=== PATIENT | male | born 1975 | race Caucasian/White ===

== ENCOUNTER → 2017-03-06 | Outpatient (CLI) | payer MEDICARE, MEDICAID ==
[~2017-03-06] MED LIST: ANAPROX DS550 MG PO; BACTRIM DS 8001 TAB PO; KEFLEX500 MG PO; PYRIDIUM200 MG PO
[2017-03-06 14:30] LABS: HEMATOCRIT 40.9 % (42.0-52.0); MEAN CELL VOLUME 90.3 fl (80.0-94.0); MEAN CORPUSCULAR HGB 30.9 pg (27.0-31.0); MEAN CORPUSCULAR HGB CONC 34.2 g/dl (33.0-37.0); MEAN PLATELET VOLUME 10.4 fl (9.6-12.3); RED BLOOD COUNT 4.53 10*6/uL (4.50-5.90); RED CELL DISTRI WIDTH 13.3 % (0-14.5); WHITE BLOOD COUNT 7.3 10*3/uL (4.8-10.8)
[2017-03-06 15:03] LABS: ALKALINE PHOSPHATASE 51 U/L (45-117); BUN 11 mg/dl (7-24); CHLORIDE 106 mmol/L (98-107); CHOLESTEROL 153 mg/dL (<200); CPK 133 U/L (39-308); CREATININE 0.87 mg/dL (0.70-1.30); HDL CHOLESTEROL 59 mg/dl (40-60); LDL CHOLESTEROL 71 mg/dL (9-159); POTASSIUM 4.1 mmol/L (3.5-5.1); SGOT/AST 17 IU/L (3-35); SGPT/ALT 23 U/L (12-78); SODIUM 140 mmol/L (136-145); TOTAL PROTEIN 7.5 gm/dL (6.4-8.2); TRIGLYCERIDES 114 mg/dl (<150); VLDL CHOLESTEROL 23 mg/dL (6-40)
== END | disposition home or self-care (01) ==
LOC: LAB 12:58
PROVIDERS: Family Medicine
DX: E78.00 Pure hypercholesterolemia, unspecified (principal); E55.9 Vitamin D deficiency, unspecified; M62.81 Muscle weakness (generalized); F41.1 Generalized anxiety disorder; R53.83 Other fatigue; E74.00 Glycogen storage disease, unspecified

== ENCOUNTER 2017-11-27 14:14 | Emergency (ER) | payer OTHER, MEDICARE, MEDICAID ==
[~2017-11-27] VITALS: Ht 177.8 cm; Wt 90.7 kg
[2017-11-27] MEDS ORDERED: Motrin,Rufen800 MG PO (17:33)
== END 2017-11-27 19:38 | disposition home or self-care (01) ==
LOC: ED 14:14
DX: S16.1XXA Strain of muscle, fascia and tendon at neck level, initial encounter (principal); R51 Headache; M62.89 Other specified disorders of muscle; V49.88XA Car occupant (driver) (passenger) injured in other specified transport accidents, initial encounter; Y93.89 Activity, other specified; Y92.413 State road as the place of occurrence of the external cause; Y99.9 Unspecified external cause status

== ENCOUNTER → 2018-02-11 | Outpatient (CLI) | payer MEDICARE, MEDICAID ==
[~2018-02-11] MED LIST changes: +Motrin,Rufen800 MG PO
== END | disposition home or self-care (01) ==
LOC: MRI 09:52
DX: R51 Headache (principal)

== ENCOUNTER → 2018-04-03 | Outpatient (CLI) | payer MEDICARE, MEDICAID ==
[2018-04-03 12:10] LABS: HEMATOCRIT 41.9 % (42.0-52.0); MEAN CELL VOLUME 90.7 fl (80.0-94.0); MEAN CORPUSCULAR HGB 30.3 pg (27.0-31.0); MEAN CORPUSCULAR HGB CONC 33.4 g/dl (33.0-37.0); MEAN PLATELET VOLUME 9.5 fl (9.6-12.3); RED BLOOD COUNT 4.62 10*6/uL (4.50-5.90); RED CELL DISTRI WIDTH 13.2 % (0-14.5); WHITE BLOOD COUNT 10.7 10*3/uL (4.8-10.8)
[2018-04-03 12:33] LABS: ALBUMIN 4.1 gm/dl (3.1-4.5); BUN 9 mg/dl (7-24); CHLORIDE 106 mmol/L (98-107); CREATININE 0.91 mg/dL (0.70-1.30); POTASSIUM 4.5 mmol/L (3.5-5.1); SGOT/AST 20 IU/L (3-35); SGPT/ALT 23 U/L (12-78); SODIUM 141 mmol/L (136-145)
[2018-04-03 12:35] LABS: ALKALINE PHOSPHATASE 56 U/L (45-117); TOTAL PROTEIN 7.9 gm/dL (6.4-8.2)
== END | disposition home or self-care (01) ==
LOC: LAB 11:37
PROVIDERS: Family Medicine
DX: S80.862A Insect bite (nonvenomous), left lower leg, initial encounter (principal); X58.XXXA Exposure to other specified factors, initial encounter; Y93.89 Activity, other specified; Y92.89 Other specified places as the place of occurrence of the external cause; Y99.8 Other external cause status; M79.605 Pain in left leg

== ENCOUNTER → 2019-02-12 | Outpatient (CLI) | payer OTHER ==
[2019-02-12 11:56] LABS: HEMATOCRIT 42.4 % (42.0-52.0); HEMOGLOBIN 14.2 g/dl (14.0-18.0); MEAN CELL VOLUME 90.8 fl (80.0-94.0); MEAN CORPUSCULAR HGB 30.4 pg (27.0-31.0); MEAN CORPUSCULAR HGB CONC 33.5 g/dl (33.0-37.0); RED BLOOD COUNT 4.67 10*6/uL (4.50-5.90); RED CELL DISTRI WIDTH 13.3 % (0-14.5); WHITE BLOOD COUNT 9.2 10*3/uL (4.8-10.8)
[2019-02-12 12:17] LABS: BUN 10 mg/dl (7-24); CHLORIDE 106 mmol/L (98-107); POTASSIUM 4.4 mmol/L (3.5-5.1); SODIUM 139 mmol/L (136-145)
[2019-02-12 12:21] LABS: ALKALINE PHOSPHATASE 68 U/L (45-117); CHOLESTEROL 149 mg/dL (<200); CPK 167 U/L (39-308); CREATININE 0.97 mg/dL (0.70-1.30); HDL CHOLESTEROL 41 mg/dl (40-60); LDL CHOLESTEROL 64 mg/dL (9-159); SGOT/AST 20 IU/L (3-35); SGPT/ALT 45 U/L (12-78); TOTAL PROTEIN 7.7 gm/dL (6.4-8.2); TRIGLYCERIDES 222 mg/dl (<150); VLDL CHOLESTEROL 44 mg/dL (6-40)
== END | disposition home or self-care (01) ==
LOC: LAB 11:22
PROVIDERS: Family Medicine
DX: E78.00 Pure hypercholesterolemia, unspecified (principal); E55.9 Vitamin D deficiency, unspecified; M25.50 Pain in unspecified joint; G72.9 Myopathy, unspecified

== ENCOUNTER → 2019-07-28 | Outpatient (CLI) | payer OTHER ==
[2019-07-31 17:03] LABS: ALTERNARIA ALTERNATA, IGE <0.10 kU/L (Class 0); AMERICAN ELM, IGE <0.10 kU/L (Class 0); ASPERGILLUS FUMIGATU, IGE <0.10 kU/L (Class 0); BERMUDA GRASS, IGE <0.10 kU/L (Class 0); BIRCH, COMMON SILVER IGE <0.10 kU/L (Class 0); CLADOSPORIUM HERBARU, IGE <0.10 kU/L (Class 0); CORN, IGE <0.10 kU/L (Class 0); D FARINAE MITE <0.10 kU/L (Class 0); D PTERONYSSINUS <0.10 kU/L (Class 0); DOG DANDER, IGE <0.10 kU/L (Class 0); IMMUNOGLOBULIN IgE 71 IU/mL (6-495); MAPLE LEAF SYCAMORE, IGE <0.10 kU/L (Class 0); MAPLE/BOX ELDER, IGE <0.10 kU/L (Class 0); MILK (COW), IGE <0.10 kU/L (Class 0); MOUSE URINE IGE <0.10 kU/L (Class 0); PEANUT, IGE <0.10 kU/L (Class 0); PENICILLIUM CHRYSOGENUM, IGE <0.10 kU/L (Class 0); ROUGH PIGWEED, IGE <0.10 kU/L (Class 0); SHEEP SORREL (DOCK), IGE <0.10 kU/L (Class 0); SHORT RAGWEED, IGE <0.10 kU/L (Class 0); SOYBEAN, IGE <0.10 kU/L (Class 0); TIMOTHY, IGE <0.10 kU/L (Class 0); WALNUT TREE, IGE <0.10 kU/L (Class 0); WHEAT, IGE <0.10 kU/L (Class 0); WHITE ASH, IGE <0.10 kU/L (Class 0); WHITE MULBERRY, IGE <0.10 kU/L (Class 0); WHITE OAK, IGE <0.10 kU/L (Class 0)
== END | disposition home or self-care (01) ==
LOC: LAB 12:38
PROVIDERS: Nurse Practitioner Family
DX: T78.40XA Allergy, unspecified, initial encounter (principal); R09.81 Nasal congestion; L29.9 Pruritus, unspecified; R60.9 Edema, unspecified; X58.XXXA Exposure to other specified factors, initial encounter

== ENCOUNTER → 2021-10-29 | Outpatient (CLI) | payer OTHER | END | disposition home or self-care (01) | LOC: RAD 08:00 | PROVIDERS: ATTEND Family Medicine | DX: K21.9 Gastro-esophageal reflux disease without esophagitis (principal) ==

== ENCOUNTER → 2021-11-22 | Outpatient (CLI) | payer OTHER | END | disposition home or self-care (01) | LOC: RAD/SH 11-20 08:00 | PROVIDERS: ATTEND Family Medicine | DX: R13.10 Dysphagia, unspecified (principal); R49.0 Dysphonia ==

== ENCOUNTER → 2022-08-12 | Outpatient (CLI) | payer OTHER | END | disposition home or self-care (01) | LOC: RAD 13:06 | PROVIDERS: ATTEND Family Medicine | DX: R05.9 Cough, unspecified (principal); R07.9 Chest pain, unspecified ==

== ENCOUNTER → 2022-10-28 | Outpatient (CLI) | payer OTHER | END | disposition home or self-care (01) | LOC: CT 10:48 | PROVIDERS: ATTEND Specialist | DX: G72.89 Other specified myopathies (principal) ==

== ENCOUNTER 2023-06-06 16:01 | Emergency (ER) | payer OTHER ==
[~2023-06-06] VITALS: Ht 175.2 cm; Wt 99.8 kg
[2023-06-06 17:13] LABS: BASO % 0.2 % (0.0-1.0); EOS % 0.1 % (1.0-4.0); HEMATOCRIT 45.9 % (42.0-52.0); LYMPH % 8.2 % (27.0-41.0); MEAN CELL VOLUME 91.8 fl (80.0-94.0); MEAN CORPUSCULAR HGB 30.2 pg (27.0-31.0); MEAN CORPUSCULAR HGB CONC 32.9 g/dl (33.0-37.0); MEAN PLATELET VOLUME 9.2 fl (9.6-12.3); MONO % 8.2 % (3.0-9.0); NEUT # 10.3 10*3/uL (2.3-7.9); NEUT % 82.2 % (47.0-73.0); PLATELET COUNT AUTOMATED 233 10*3/uL (130-400); RED CELL DISTRI WIDTH 13.2 % (0-14.5); WHITE BLOOD COUNT 12.5 10*3/uL (4.8-10.8)
[2023-06-06 17:26] LABS: ACT PARTIAL THROMBO TIME 25.2 SECONDS (20.0-32.1)
[2023-06-06 17:35] LABS: ALKALINE PHOSPHATASE 58 U/L (46-116); BUN 8 mg/dl (9-23); CHLORIDE 105 mmol/L (98-107); LIPASE 36 U/L (12-53); POTASSIUM 3.7 mmol/L (3.4-5.1); SGPT/ALT 19 U/L (5-49); TOTAL PROTEIN 7.5 gm/dL (6.0-8.0)
== END 2023-06-06 21:31 | disposition short-term general hospital (02) ==
LOC: ED 16:01
PROVIDERS: Physician Assistant Medical
DX: S06.359A Traumatic hemorrhage of left cerebrum with loss of consciousness of unspecified duration, initial encounter (principal); W01.10XA Fall on same level from slipping, tripping and stumbling with subsequent striking against unspecified object, initial encounter; Y93.89 Activity, other specified; Y92.009 Unspecified place in unspecified non-institutional (private) residence as the place of occurrence of the external cause; Y99.8 Other external cause status

== ENCOUNTER 2023-09-14 18:14 | Emergency (ER) | payer OTHER ==
[~2023-09-14] VITALS: Ht 177.8 cm; Wt 99.8 kg
[2023-09-14] MEDS ORDERED: KEPPRA750 MG PO (18:28)
[2023-09-14] MEDS ORDERED: HYDROCHLOROTHIA25 M1 PO (18:29)
[2023-09-14] MEDS ORDERED: AMLODIPINE BESY10 MG PO (18:29)
[2023-09-14] MEDS ORDERED: LISINOPRIL10 M1 PO (18:30)
[2023-09-14] MEDS ORDERED: SODIUM CHLORIDE 0.9% 1,000 ML IV ONE (18:45)
[2023-09-14 19:10] LABS: BASO # 0.1 10*3/uL (0.0-0.1); BASO % 0.6 % (0.0-1.0); EOS # 0.2 10*3/uL (0.0-0.4); EOS % 2.5 % (1.0-4.0); HEMATOCRIT 41.7 % (42.0-52.0); LYMPH # 2.2 10*3/uL (1.3-4.4); LYMPH % 22.5 % (27.0-41.0); MEAN CELL VOLUME 91.9 fl (80.0-94.0); MEAN CORPUSCULAR HGB 30.4 pg (27.0-31.0); MEAN CORPUSCULAR HGB CONC 33.1 g/dl (33.0-37.0); MEAN PLATELET VOLUME 9.7 fl (9.6-12.3); MONO # 0.8 10*3/uL (0.1-1.0); MONO % 8.5 % (3.0-9.0); NEUT # 6.2 10*3/uL (2.3-7.9); NEUT % 64.6 % (47.0-73.0); PLATELET COUNT AUTOMATED 222 10*3/uL (130-400); RED BLOOD COUNT 4.54 10*6/uL (4.50-5.90); WHITE BLOOD COUNT 9.6 10*3/uL (4.8-10.8)
[2023-09-14 19:32] LABS: BUN 10 mg/dl (9-23); CHLORIDE 104 mmol/L (98-107); POTASSIUM 3.7 mmol/L (3.4-5.1)
== END 2023-09-14 20:36 | disposition home or self-care (01) ==
LOC: ED 18:14
PROVIDERS: Nurse Practitioner Family
DX: R55 Syncope and collapse (principal); H53.8 Other visual disturbances

== ENCOUNTER → 2024-03-12 | Outpatient (CLI) | payer OTHER ==
[~2024-03-12] MED LIST changes: +AMLODIPINE BESY10 MG PO; +HYDROCHLOROTHIA25 M1 PO; +KEPPRA750 MG PO; +LISINOPRIL10 M1 PO
[2024-03-12 10:40] LABS: BUN 12 mg/dl (9-23); CHLORIDE 104 mmol/L (98-107)
== END | disposition home or self-care (01) ==
LOC: LAB 10:04
PROVIDERS: ATTEND Nurse Practitioner Family
DX: Q27.30 Arteriovenous malformation, site unspecified (principal)

== ENCOUNTER → 2024-03-26 | Outpatient (CLI) | payer OTHER ==
[2024-03-26 17:40] LABS: BASO # 0.1 10*3/uL (0.0-0.1); BASO % 0.5 % (0.0-1.0); EOS # 0.4 10*3/uL (0.0-0.4); EOS % 4.3 % (1.0-4.0); HEMATOCRIT 43.2 % (42.0-52.0); LYMPH # 2.6 10*3/uL (1.3-4.4); MEAN CELL VOLUME 90.2 fl (80.0-94.0); MEAN CORPUSCULAR HGB 30.1 pg (27.0-31.0); MEAN CORPUSCULAR HGB CONC 33.3 g/dl (33.0-37.0); MEAN PLATELET VOLUME 9.1 fl (9.6-12.3); MONO % 11.1 % (3.0-9.0); NEUT % 54.6 % (47.0-73.0); PLATELET COUNT AUTOMATED 224 10*3/uL (130-400); RED BLOOD COUNT 4.79 10*6/uL (4.50-5.90); RED CELL DISTRI WIDTH 12.8 % (0-14.5); WHITE BLOOD COUNT 9.1 10*3/uL (4.8-10.8)
== END | disposition home or self-care (01) ==
LOC: LAB 17:22
PROVIDERS: ATTEND Family Medicine
DX: Q27.30 Arteriovenous malformation, site unspecified (principal)

== ENCOUNTER → 2024-04-09 | Outpatient (CLI) | payer OTHER | END | disposition home or self-care (01) | LOC: RAD 13:01 | PROVIDERS: ATTEND Family Medicine | DX: M77.32 Calcaneal spur, left foot (principal); M77.31 Calcaneal spur, right foot; M43.8X6 Other specified deforming dorsopathies, lumbar region; M51.369 Other intervertebral disc degeneration, lumbar region without mention of lumbar back pain or lower extremity pain; M79.672 Pain in left foot; M79.671 Pain in right foot; M54.50 Low back pain, unspecified ==

== ENCOUNTER → 2024-12-04 | Outpatient (CLI) | payer OTHER | END | disposition home or self-care (01) | LOC: CT 09:00 | PROVIDERS: ATTEND Nurse Practitioner Family | DX: N28.1 Cyst of kidney, acquired (principal); K42.9 Umbilical hernia without obstruction or gangrene; K40.90 Unilateral inguinal hernia, without obstruction or gangrene, not specified as recurrent; K43.9 Ventral hernia without obstruction or gangrene; R10.9 Unspecified abdominal pain; R91.8 Other nonspecific abnormal finding of lung field ==